=== PATIENT | female | born 1950 | race Caucasian/White ===

== ENCOUNTER 2018-11-29 12:41 | Emergency (ER) | payer OTHER, MEDICARE ==
[2018-11-29 12:50] VITALS: BP 132/89; PULSE 75; TEMP 98; BMI 22.6
--- NOTE | 2018-11-29 13:37 | PDOC ---
History of Present Illness - General Chief Complaint: Injury Stated Complaint: left toe pain s/p injury Time Seen by Provider: 11/29/18 12:45 History Source: Patient Exam Limitations: No Limitations - History of Present Illness Initial Comments: 11/29/18 13:32 68F with PMH of osteoporosis who presents to the ER with toe pain. The patient states that she dropped a 25lb plate on her foot yesterday at the gym, specifically her L great toe. She is able to ambulate but called her orthopedic surgeon and he recommended an XR. She denies numbness, tingling, weakness, and nail injury. Past History - Past Medical History Allergies/Adverse Reactions: Allergies Allergy/AdvReac Type Severity Reaction Status Date / Time garlic Allergy Severe Verified 11/29/18 12:44 Penicillins Allergy Verified 11/29/18 12:43 Home Medications: Ambulatory Orders Albuterol Sulfate [Proventil HFA Inhaler -] 1 - 2 inh PO ASDIR 11/29/18 Asthma: Yes COPD: No - Suicide/Smoking/Psychosocial Hx Smoking History: Never smoked Have you smoked in the past 12 months: No Hx Alcohol Use: Yes (once in a month.) Drug/Substance Use Hx: No Substance Use Type: None Review of Systems - Review of Systems Able to Perform ROS?: Yes Comments:: 11/29/18 13:33 GENERAL/CONSTITUTIONAL: No fever or chills. No weakness. MUSCULOSKELETAL: + for L great toe pain. No neck or back pain. SKIN: No rash or lesions. NEUROLOGIC: No headache, numbness, tingling, focal weakness, loss of consciousness, or change in strength/sensation. Is the patient limited Kazakh proficient: No *Physical Exam - Vital Signs Last Vital Signs Temp Pulse Resp BP Pulse Ox 98 F 75 18 132/89 100 11/29/18 12:42 11/29/18 12:42 11/29/18 12:42 11/29/18 12:42 11/29/18 12:42 - Physical Exam Comments: 11/29/18 13:33 GENERAL: Well developed, well nourished. Awake and alert. No acute distress. HEENT: Normocephalic, atraumatic. Hearing grossly normal. Moist mucous membranes. MUSCULOSKELETAL: Bruising and TTP over distal L great toe. No subungal hematoma. Neurovascularly intact in L leg and foot. EXTREMITIES: No cyanosis. No clubbing. No edema. No calf tenderness or swelling. SKIN: Warm and dry. Normal capillary refill. No rashes. No jaundice. NEUROLOGICAL: Alert, awake, appropriate. Cranial nerves 2-12 grossly intact. Finger to nose normal bilaterally. Normal speech. Gait is normal without ataxia. PSYCHIATRIC: Cooperative. Good eye contact. Appropriate mood and affect. ED Treatment Course - RADIOLOGY Radiology Studies Ordered: Category Date Time Status FOOT-LEFT [RAD] Stat Radiology 11/29/18 12:45 Taken Medical Decision Making - Medical Decision Making 11/29/18 13:34 68F who presents with L great toe pain. Preliminary read of XR is negative. Pt defers on hard sole shoe. Will d/c with PCP and pt's ortho f/u. *DC/Admit/Observation/Transfer Diagnosis at time of Disposition: Toe pain, left - Discharge Dispostion Disposition: HOME Condition at time of disposition: Stable Decision to Admit order: No - Referrals - Patient Instructions Printed Discharge Instructions: How To Perform RICE (Rest, Ice, Compress, Elevate) Additional Instructions: Please follow up with your orthopedic surgeon in a week. Use the hard sole shoe and RICE as needed. Please return to the ER with any worsening, new, or changing symptoms. - Post Discharge Activity
--- NOTE | 2018-11-29 13:55 | PDOC ---
Attending Attestation - Resident Resident Name: MilannathalyGianfranco - ED Attending Attestation I have performed the following: I have examined & evaluated the patient, The case was reviewed & discussed with the resident, I agree w/resident's findings & plan, Exceptions are as noted - HPI HPI: 11/29/18 13:48 68yo female with L big toe pain. Pt dropped at 25lb wt on her foot yesterday. Pt with black and blue toe today. Pain to the distal phalanx of the L big toe. Bruising along the toe. No subungal hematoma. Pt pedal pulses intact. Pt states she has been walking on the foot since it happened yesterday at the gym. Pt denies all other complaints. - Physicial Exam PE: 11/29/18 13:55 Gen: [id number], nad foot: L big toe ecchymosis and swelling, ttp over distal phalanx, no crepitus. pedal pulses intact, brisk cap refill, sensation intact - Medical Decision Making 11/29/18 13:48 I, Dr. Tiffanie Goss, DO, attest that this document has been prepared under my direction and personally reviewed by me in its entirety. I further attest, that it accurately reflects all work, treatment, procedures and medical decision -making performed by me. 11/29/18 13:56 a/p: 68yo female with L big toe injury -pt is a retired urologist -pt with pain to distal phalanx -xrya does not show acute fx -pt declines tylenol or motrin -will jenna tape and pt will follow up with orthopedics pt stable for dc to home
== END 2018-11-29 13:45 | disposition home or self-care (01) ==
LOC: FER 12:41
DX: M79.675 Pain in left toe(s) (principal); W20.8XXA Other cause of strike by thrown, projected or falling object, initial encounter; Y93.9 Activity, unspecified; Y92.9 Unspecified place or not applicable
CPT/HCPCS: 73630-TC-LT; 99281-25